=== PATIENT | male | born 1940 | race Caucasian/White ===

== ENCOUNTER 2017-02-22 01:43 | Observation (INO) | payer MEDICARE ==
[~2017-02-22] VITALS: Ht 167.6 cm; Wt 69.4 kg
[~2017-02-22 01:43] MED LIST: ASPIR 8181 MG PO; FISH OIL OMEGA1 EACH PO; ULTRACET TABLE1 EACH PO
[2017-02-22] MEDS ORDERED: SODIUM CHLORIDE 0.9% 1000ML 1,000 ML IV STA (02:08)
[2017-02-22] MEDS ORDERED: PANTOPRAZOLE 40 MG 10ML VIAL IV STA (02:08)
[2017-02-22 03:03] LABS: BASOPHILS # (AUTO) 0.1 (0.0-0.1); BASOPHILS % 0.6 % (0.0-1.0); BILIRUBIN,URINE NEGATIVE (NEGATIVE); EOSINOPHILS # (AUTO) 0.2 (0.0-0.4); EOSINOPHILS % 2.1 % (0.0-6.0); HEMATOCRIT 40.4 % (38.2-49.6); HEMOGLOBIN 14.1 g/dL (14.0-18.0); KETONES,URINE NEGATIVE (NEGATIVE); LEUKOCYTE ESTERASE ,URINE NEGATIVE (NEGATIVE); LYMPHOCYTES # (AUTO) 2.8 (1.0-3.2); LYMPHOCYTES % 29.5 % (18.0-39.1); MEAN CORPUSCULAR HEMOGLOBIN 31.9 pg (28-32); MEAN CORPUSCULAR HGB CONC 34.9 g/dL (31-35); MEAN CORPUSCULAR VOLUME 91.4 fL (81-99); MONOCYTES # (AUTO) 0.7 (0.2-0.8); MONOCYTES % 7.6 % (4.4-11.3); NEUTROPHILS # (AUTO) 5.7 (2.1-6.9); NEUTROPHILS % 59.9 % (38.7-80.0); NITRITE,URINE NEGATIVE (NEGATIVE); PLATELET COUNT 282 x10e3/uL (140-360); RED BLOOD COUNT 4.42 x10e6/uL (4.3-5.7); RED CELL DISTRIBUTION WIDTH 11.9 % (11.7-14.4); URINE UROBILINOGEN 0.2 mg/dL (0.2 - 1)
[2017-02-22 03:08] LABS: CLARITY,URINE CLEAR (CLEAR); COLOR,URINE YELLOW (YELLOW); PROTEIN,URINE DIPSTICK TRACE (NEGATIVE)
[2017-02-22 03:13] LABS: INR 0.88; PROTHROMBIN TIME 12.4 seconds (11.9-14.5)
[2017-02-22 03:14] LABS: PARTIAL THROMBOPLASTIN TIME 27.5 seconds (23.8-35.5)
[2017-02-22 03:19] LABS: BACTERIA,URINE FEW /HPF; EPITHELIAL CELLS,URINE RARE /LPF; MUCUS,URINE MODERATE (RARE); RBC,URINE 0-5 /HPF (0-5); WBC,URINE (MAN) 0-5 /HPF (0-5)
[2017-02-22 03:24] LABS: ALANINE AMINOTRANSFERASE 19 IU/L (0-55); ALBUMIN 3.5 g/dL (3.5-5.0); ALBUMIN/GLOBULIN RATIO 0.9 (0.8-2.0); ALKALINE PHOSPHATASE 51 IU/L (40-150); ANION GAP 12.9 mmol/L (8-16); BLOOD UREA NITROGEN 14 mg/dL (7-26); BUN/CREATININE RATIO 16 (6-25); CALCIUM 9.1 mg/dL (8.4-10.2); CARBON DIOXIDE 25 mmol/L (22-29); CHLORIDE 106 mmol/L (98-107); CREATINE KINASE 55 IU/L (30-200); CREATININE, SERUM 0.87 mg/dL (0.72-1.25); EST GLOMERULAR FILTRATION RATE > 60 ML/MIN (60-); GLUCOSE 117 mg/dL (74-118); LIPASE 14 U/L (8-78); MAGNESIUM 1.8 MG/DL (1.3-2.1); POTASSIUM 3.9 mmol/L (3.5-5.1); SODIUM 140 mmol/L (136-145)
[2017-02-22 03:25] LABS: CREATINE KINASE MB < 1.00 ng/mL (0-4.3); TROPONIN I < 0.05 ng/mL (0.0-0.40)
[2017-02-22] MEDS: SODIUM CHLORIDE 0.9% 1000ML 1,000 ML IV SCH ×2 (04:30→20:27)
[2017-02-22 10:36] LABS: BASOPHILS % 0.4 % (0.0-1.0); EOSINOPHILS # (AUTO) 0.1 (0.0-0.4); EOSINOPHILS % 0.9 % (0.0-6.0); HEMATOCRIT 34.9 % (38.2-49.6); HEMOGLOBIN 12.2 g/dL (14.0-18.0); LYMPHOCYTES # (AUTO) 2.2 (1.0-3.2); LYMPHOCYTES % 24.6 % (18.0-39.1); MEAN CORPUSCULAR HEMOGLOBIN 32.2 pg (28-32); MEAN CORPUSCULAR VOLUME 92.1 fL (81-99); MONOCYTES # (AUTO) 0.8 (0.2-0.8); MONOCYTES % 8.7 % (4.4-11.3); NEUTROPHILS # (AUTO) 5.9 (2.1-6.9); NEUTROPHILS % 65.1 % (38.7-80.0); PLATELET COUNT 212 x10e3/uL (140-360); RED BLOOD COUNT 3.79 x10e6/uL (4.3-5.7); RED CELL DISTRIBUTION WIDTH 11.9 % (11.7-14.4)
--- NOTE | 2017-02-22 10:52 | History and Physical ---
REASON FOR ADMISSION: Bright red blood per rectum. HISTORY OF PRESENT ILLNESS: Patient is a gentleman well known to me, who was in usual state of health until about 2-3 days prior to admission, he started having some watery diarrhea, no fever, no abdominal pain, that started to resolve, but then with bowel movement prior to the emergency room visit was pure bright red blood per rectum with no stool material, but there was no pain associated with it. REVIEW OF SYSTEMS: He denies any nausea, vomiting, weight loss, fevers, chills, rashes, chest pain, shortness of breath. PAST MEDICAL HISTORY: Hypertension. MEDICATIONS: See JUN. ALLERGIES: SEE JUN. SOCIAL: Nonsmoker, nondrinker. Lives at home with his . FAMILY HISTORY: Hypertension. PHYSICAL EXAM VITALS: 98.6, blood pressure 156/72, pulse 74, sats 99% on room air. GENERAL: He is in no apparent distress, lying in bed. NECK: Supple. CARDIOVASCULAR: Regular rate and rhythm. LUNGS: Clear to auscultation bilaterally. ABDOMEN: Good bowel sounds. Soft, nontender. Had no peritoneal signs. EXTREMITIES: No clubbing, cyanosis. NEUROLOGICAL: Nonfocal. ASSESSMENT AND PLAN 1. Bright red blood per rectum, most likely diverticulosis. He has had no other symptoms associated with it, but will admit the patient. Continue to monitor the patient. Will follow his blood counts to make sure he does not become anemic. Will consult GI for possible colonoscopy. 2. Hypertension. Will continue to monitor. He is also asymptomatic with this. Usually, he is well controlled at home without medication. Please see hospital chart for full details. Job#: [id number] CQ
[2017-02-22 12:32] VITALS: BP 163/73
[2017-02-22 13:16] VITALS: BP 163/73
[2017-02-22 16:00] VITALS: BP 127/62
[2017-02-22 17:07] LABS: BASOPHILS # (AUTO) 0.1 (0.0-0.1); BASOPHILS % 0.6 % (0.0-1.0); EOSINOPHILS # (AUTO) 0.1 (0.0-0.4); EOSINOPHILS % 1.6 % (0.0-6.0); HEMOGLOBIN 11.8 g/dL (14.0-18.0); LYMPHOCYTES # (AUTO) 2.3 (1.0-3.2); LYMPHOCYTES % 26.1 % (18.0-39.1); MEAN CORPUSCULAR HEMOGLOBIN 31.1 pg (28-32); MEAN CORPUSCULAR HGB CONC 33.7 g/dL (31-35); MEAN CORPUSCULAR VOLUME 92.1 fL (81-99); MONOCYTES # (AUTO) 0.8 (0.2-0.8); MONOCYTES % 9.7 % (4.4-11.3); NEUTROPHILS # (AUTO) 5.3 (2.1-6.9); NEUTROPHILS % 61.8 % (38.7-80.0); PLATELET COUNT 241 x10e3/uL (140-360); RED CELL DISTRIBUTION WIDTH 11.9 % (11.7-14.4)
[2017-02-22] MEDS ORDERED: PEG (High)/E-LYTE SOLN 4,000 ML BTL PO ONE (19:45)
[2017-02-22 20:02] VITALS: BP 151/86
--- NOTE | 2017-02-22 20:59 | Consultation ---
DATE OF CONSULTATION: February 22, 2017 REASON FOR CONSULT: Hematochezia versus melena. HISTORY OF PRESENT ILLNESS: A 76-year-old very pleasant white male with a past medical history of hypertension has started having diarrhea a couple of days ago. Diarrhea was self-limiting and resolved. 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 During the bowel movement, he noticed bright red blood per rectum. No stool on the toilet bowl. He has no associated dizziness, shortness of breath, palpitations, presyncope, or syncope. He has no prior history of hemorrhoids. He has never had rectal bleeding like this in the past. Denies any associated abdominal pain. No nausea or vomiting. Per the patient, blood was dark. No history of peptic ulcer disease. He has no known history of any kind of anemia. Denies any upper GI symptoms. REVIEW OF SYSTEMS: A 12-point system reviewed, and symptomatology is limited to GI system only. PAST MEDICAL HISTORY: Hypertension. PAST SURGICAL HISTORY: He has had a colonoscopy in the remote past. SOCIAL HISTORY: No smoking, alcohol or any illicit drug use. and lives with his . ALLERGIES: NO KNOWN DRUG ALLERGIES. MEDICATIONS: As per MAR. He is not any antihypertensives. PHYSICAL EXAMINATION VITAL SIGNS: Temperature 98, pulse 77, respirations 18, blood pressure 163/73 to 127/62. GENERAL: Not in any apparent distress. HEENT: Moist mucous membranes. Anicteric sclerae. NECK: No neck or axillary adenopathy. CV: S1 and S2 regular. LUNGS: Bilaterally grossly clear. ABDOMEN: Soft, nondistended and nontender. No palpable mass or hernia. Positive bowel sounds. EXTREMITIES: Warm. No leg edema. RECTAL: Deferred as the patient is going to have a colonoscopy tomorrow. LABS: WBC 8.63, hemoglobin on admission was 14.1 and subsequently dropped down to 11.8, hematocrit 35, MCV 92.1, and platelet count 241,000. Electrolytes normal. LFTs normal. Urinalysis negative. PT 12.4, INR 0.88. Stool occult hem-positive. PLAN: Medical management for GI bleeding that should include securing 2 large IV accesses, IV fluids, monitor hemoglobin. Watch for any further gross GI bleeding. Transfuse hemoglobin if hemoglobin falls below 7. Clear liquid diet. GOLYTELY tonight. Upper endoscopy as well as colonoscopy tomorrow. I thank Dr. Gayle for allowing me to participate in the care of this patient. Job#: [id number] KAITY MATUTE
[2017-02-22 22:33] LABS: BASOPHILS # (AUTO) 0.1 (0.0-0.1); BASOPHILS % 0.6 % (0.0-1.0); EOSINOPHILS # (AUTO) 0.1 (0.0-0.4); EOSINOPHILS % 1.2 % (0.0-6.0); HEMATOCRIT 38.1 % (38.2-49.6); HEMOGLOBIN 12.9 g/dL (14.0-18.0); LYMPHOCYTES # (AUTO) 1.8 (1.0-3.2); LYMPHOCYTES % 21.7 % (18.0-39.1); MEAN CORPUSCULAR HEMOGLOBIN 31.2 pg (28-32); MEAN CORPUSCULAR HGB CONC 33.9 g/dL (31-35); MEAN CORPUSCULAR VOLUME 92.3 fL (81-99); MONOCYTES # (AUTO) 0.7 (0.2-0.8); MONOCYTES % 8.7 % (4.4-11.3); NEUTROPHILS # (AUTO) 5.6 (2.1-6.9); NEUTROPHILS % 67.4 % (38.7-80.0); PLATELET COUNT 265 x10e3/uL (140-360); RED BLOOD COUNT 4.13 x10e6/uL (4.3-5.7); RED CELL DISTRIBUTION WIDTH 11.9 % (11.7-14.4)
[2017-02-23 00:17] VITALS: BP 155/74
[2017-02-23] MEDS: SODIUM CHLORIDE 0.9% 1000ML 1,000 ML IV SCH ×3 (01:08→23:43)
[2017-02-23 04:21] VITALS: BP 113/60
[2017-02-23 06:19] LABS: BASOPHILS # (AUTO) 0.1 (0.0-0.1); BASOPHILS % 0.6 % (0.0-1.0); EOSINOPHILS # (AUTO) 0.1 (0.0-0.4); EOSINOPHILS % 1.5 % (0.0-6.0); HEMATOCRIT 35.3 % (38.2-49.6); HEMOGLOBIN 11.9 g/dL (14.0-18.0); LYMPHOCYTES # (AUTO) 2.9 (1.0-3.2); LYMPHOCYTES % 30.4 % (18.0-39.1); MEAN CORPUSCULAR HEMOGLOBIN 30.8 pg (28-32); MEAN CORPUSCULAR HGB CONC 33.7 g/dL (31-35); MEAN CORPUSCULAR VOLUME 91.5 fL (81-99); MONOCYTES # (AUTO) 0.9 (0.2-0.8); MONOCYTES % 9.3 % (4.4-11.3); NEUTROPHILS # (AUTO) 5.4 (2.1-6.9); PLATELET COUNT 252 x10e3/uL (140-360); RED BLOOD COUNT 3.86 x10e6/uL (4.3-5.7)
[2017-02-23 06:55] LABS: ALANINE AMINOTRANSFERASE 17 IU/L (0-55); ALBUMIN 3.3 g/dL (3.5-5.0); ALKALINE PHOSPHATASE 47 IU/L (40-150); ANION GAP 11.9 mmol/L (8-16); BLOOD UREA NITROGEN 8 mg/dL (7-26); BUN/CREATININE RATIO 10 (6-25); CARBON DIOXIDE 28 mmol/L (22-29); CHLORIDE 107 mmol/L (98-107); EST GLOMERULAR FILTRATION RATE > 60 ML/MIN (60-); GLUCOSE 96 mg/dL (74-118); POTASSIUM 4.9 mmol/L (3.5-5.1); SODIUM 142 mmol/L (136-145)
[2017-02-23 08:00] VITALS: BP 133/68
[2017-02-23] MEDS: PANTOPRAZOLE 40 MG 10ML VIAL IV SCH (09:00)
[2017-02-23] MEDS ORDERED: SIMETHICONE 40 MG/0.6 ML BTL ONE (09:55)
[2017-02-23 12:22] VITALS: BP 137/60
[2017-02-23 12:46] LABS: BASOPHILS # (AUTO) 0.1 (0.0-0.1); BASOPHILS % 0.8 % (0.0-1.0); EOSINOPHILS # (AUTO) 0.1 (0.0-0.4); EOSINOPHILS % 1.8 % (0.0-6.0); HEMATOCRIT 34.3 % (38.2-49.6); HEMOGLOBIN 11.4 g/dL (14.0-18.0); LYMPHOCYTES % 26.1 % (18.0-39.1); MEAN CORPUSCULAR HEMOGLOBIN 30.9 pg (28-32); MEAN CORPUSCULAR HGB CONC 33.2 g/dL (31-35); MONOCYTES # (AUTO) 0.8 (0.2-0.8); MONOCYTES % 9.7 % (4.4-11.3); NEUTROPHILS # (AUTO) 4.8 (2.1-6.9); NEUTROPHILS % 61.2 % (38.7-80.0); PLATELET COUNT 238 x10e3/uL (140-360); RED BLOOD COUNT 3.69 x10e6/uL (4.3-5.7)
[2017-02-23 16:37] VITALS: BP 111/57
[2017-02-23] MEDS ORDERED: PROPOFOL IV EMULSION 10 MG/ML 20 ML VIAL ONE (16:41)
[2017-02-23] MEDS ORDERED: LIDOCAINE HCL 2% LOCAL INJ 5 ML SDV VIAL INJ ONE (16:41)
[2017-02-23] MEDS ORDERED: FENTANYL CITRATE/PF 100MCG/2 ML INJ ONE (16:57)
[2017-02-23] MEDS ORDERED: MIDAZOLAM HCL 2 MG/2 ML VIAL ONE (16:57)
[2017-02-23 18:10] LABS: BASOPHILS # (AUTO) 0.1 (0.0-0.1); BASOPHILS % 0.5 % (0.0-1.0); EOSINOPHILS # (AUTO) 0.2 (0.0-0.4); EOSINOPHILS % 1.5 % (0.0-6.0); HEMATOCRIT 35.2 % (38.2-49.6); HEMOGLOBIN 11.9 g/dL (14.0-18.0); LYMPHOCYTES # (AUTO) 1.9 (1.0-3.2); LYMPHOCYTES % 15.8 % (18.0-39.1); MEAN CORPUSCULAR HEMOGLOBIN 31.6 pg (28-32); MEAN CORPUSCULAR HGB CONC 33.8 g/dL (31-35); MEAN CORPUSCULAR VOLUME 93.6 fL (81-99); MONOCYTES # (AUTO) 0.8 (0.2-0.8); MONOCYTES % 6.3 % (4.4-11.3); NEUTROPHILS % 75.6 % (38.7-80.0); PLATELET COUNT 245 x10e3/uL (140-360); RED BLOOD COUNT 3.76 x10e6/uL (4.3-5.7); RED CELL DISTRIBUTION WIDTH 12.1 % (11.7-14.4)
[2017-02-23 20:12] VITALS: BP 106/57
[2017-02-24] VITALS: BP 102/54
[2017-02-24 00:40] LABS: BASOPHILS # (AUTO) 0.1 (0.0-0.1); BASOPHILS % 0.6 % (0.0-1.0); EOSINOPHILS # (AUTO) 0.2 (0.0-0.4); EOSINOPHILS % 2.3 % (0.0-6.0); HEMATOCRIT 30.3 % (38.2-49.6); HEMOGLOBIN 10.4 g/dL (14.0-18.0); LYMPHOCYTES % 24.6 % (18.0-39.1); MEAN CORPUSCULAR HEMOGLOBIN 31.3 pg (28-32); MEAN CORPUSCULAR HGB CONC 34.3 g/dL (31-35); MEAN CORPUSCULAR VOLUME 91.3 fL (81-99); MONOCYTES # (AUTO) 0.8 (0.2-0.8); MONOCYTES % 9.4 % (4.4-11.3); NEUTROPHILS # (AUTO) 5.2 (2.1-6.9); NEUTROPHILS % 62.9 % (38.7-80.0); PLATELET COUNT 213 x10e3/uL (140-360); RED BLOOD COUNT 3.32 x10e6/uL (4.3-5.7); RED CELL DISTRIBUTION WIDTH 12.1 % (11.7-14.4)
[2017-02-24 04:00] VITALS: BP 106/59
[2017-02-24] MEDS: SODIUM CHLORIDE 0.9% 1000ML 1,000 ML IV SCH (06:19)
[2017-02-24 06:34] LABS: BASOPHILS % 0.4 % (0.0-1.0); EOSINOPHILS # (AUTO) 0.2 (0.0-0.4); HEMATOCRIT 31.8 % (38.2-49.6); HEMOGLOBIN 10.6 g/dL (14.0-18.0); LYMPHOCYTES # (AUTO) 2.1 (1.0-3.2); LYMPHOCYTES % 28.8 % (18.0-39.1); MEAN CORPUSCULAR HGB CONC 33.3 g/dL (31-35); MONOCYTES # (AUTO) 0.7 (0.2-0.8); MONOCYTES % 10.1 % (4.4-11.3); NEUTROPHILS # (AUTO) 4.2 (2.1-6.9); NEUTROPHILS % 57.6 % (38.7-80.0); PLATELET COUNT 220 x10e3/uL (140-360); RED BLOOD COUNT 3.42 x10e6/uL (4.3-5.7)
[2017-02-24 08:00] VITALS: BP 125/64
[2017-02-24] MEDS: PANTOPRAZOLE 40 MG 10ML VIAL IV SCH (09:00)
--- NOTE | 2017-04-06 04:18 | Discharge Summary ---
DISCHARGE DIAGNOSES: 1. Gastrointestinal bleed. 2. Anemia. 3. Hypertension. HISTORY OF PRESENT ILLNESS AND HOSPITAL COURSE: See hospital chart for full details. The patient is a gentleman who presented with acute onset of GI bleed, so he was admitted for further evaluation and treatment where he did have his colonoscopy done without any further bleeding while in the hospital as well as EGD done. EGD showed normal esophagus with mild gastritis. Colonoscopy showed colonic polyps, internal hemorrhoids and diverticulosis. Patient will follow up in 1 to 2 weeks with me. Please see hospital chart for full details. BRENNON SANTOS MD Job#: [id number] GE
== END 2017-02-24 10:46 | disposition home or self-care (01) ==
LOC: ER 01:43 → ERHOLD 04:32 → EDBEDREQSVC 04:37 → IMCU 12:06
PROVIDERS: ADMIT Internal Medicine; ATTEND Internal Medicine
DX: D12.5 Benign neoplasm of sigmoid colon (principal); K62.5 Hemorrhage of anus and rectum; I10 Essential (primary) hypertension; K64.8 Other hemorrhoids; K57.30 Diverticulosis of large intestine without perforation or abscess without bleeding; K29.70 Gastritis, unspecified, without bleeding
CPT/HCPCS: 36415 ×3; 45380; 80053 ×2; 81001; 82270; 82550; 82553; 83690; 83735; 84484; 85025 ×3; 85610; 85730; 86850; 86900; 87086; 88305; 88312; 88342; 99284; G0378 ×3; J2001; J2250; J7030 ×2; 43239; 45378

== ENCOUNTER 2019-08-29 19:56 | Inpatient (IN) | payer MEDICARE, OTHER ==
[~2019-08-29] VITALS: Ht 167.6 cm; Wt 66.0 kg
[2019-08-29] MEDS ORDERED: SODIUM CHLORIDE 0.9% 1000ML 1,000 ML IV STA (21:02)
[2019-08-29 21:33] LABS: BASOPHILS % 0.2 % (0.0-1.0); EOSINOPHILS % 0.3 % (0.0-6.0); HEMOGLOBIN 8.2 g/dL (14.0-18.0); LYMPHOCYTES # (AUTO) 1.8 (1.0-3.2); LYMPHOCYTES % 14.2 % (18.0-39.1); MEAN CORPUSCULAR HEMOGLOBIN 28.5 pg (28-32); MEAN CORPUSCULAR HGB CONC 32.8 g/dL (31-35); MEAN CORPUSCULAR VOLUME 86.8 fL (81-99); MONOCYTES # (AUTO) 0.8 (0.2-0.8); MONOCYTES % 6.1 % (4.4-11.3); NEUTROPHILS # (AUTO) 10.1 (2.1-6.9); NEUTROPHILS % 78.7 % (38.7-80.0); PLATELET COUNT 296 x10e3/uL (140-360); RED BLOOD COUNT 2.88 x10e6/uL (4.3-5.7); RED CELL DISTRIBUTION WIDTH 13.7 % (11.7-14.4)
[2019-08-29 21:54] LABS: ALANINE AMINOTRANSFERASE 12 IU/L (0-55); ALBUMIN 3.1 g/dL (3.5-5.0); ALBUMIN/GLOBULIN RATIO 1.1 (0.8-2.0); ALKALINE PHOSPHATASE 43 IU/L (40-150); ANION GAP 13.5 mmol/L (8-16); BLOOD UREA NITROGEN 19 mg/dL (7-26); BUN/CREATININE RATIO 18 (6-25); CALCIUM 8.2 mg/dL (8.4-10.2); CARBON DIOXIDE 21 mmol/L (22-29); CHLORIDE 105 mmol/L (98-107); CREATINE KINASE 39 IU/L (30-200); CREATININE, SERUM 1.04 mg/dL (0.72-1.25); EST GLOMERULAR FILTRATION RATE > 60 ML/MIN (60-); GLUCOSE 158 mg/dL (74-118); LIPASE 10 U/L (8-78); POTASSIUM 4.5 mmol/L (3.5-5.1); SODIUM 135 mmol/L (136-145)
--- NOTE | 2019-08-29 23:24 | Diagnostic Imaging Report ---
EXAM: CT Abdomen and Pelvis WITH contrast INDICATION: GI bleed COMPARISON: None. TECHNIQUE: Abdomen and pelvis were scanned utilizing a multidetector helical scanner from the lung base to the pubic symphysis after administration of IV contrast. Coronal and sagittal reformations were obtained. Routine protocol was performed. Scan was performed when during portal venous phase. IV CONTRAST: 100 mL of Isovue 370 ORAL CONTRAST: Water COMPLICATIONS: None RADIATION DOSE: Total DLP: 357 mGy*cm Estimated effective dose: (DLP x 0.015 x size factor) mSv CTDIvol has been reviewed. It is below the limits set by the Radiation Protocol Committee (RPC). Dose modulation, iterative reconstruction, and/or weight based adjustment of the mA/kV was utilized to reduce the radiation dose to as low as reasonably achievable. FINDINGS: LINES and TUBES: None. LOWER THORAX: Partially visualized 6 mm noncalcified right lower lobe pulmonary nodule (image 1). HEPATOBILIARY: No focal hepatic lesions. No biliary ductal dilation. GALLBLADDER: Surgically absent. SPLEEN: No splenomegaly PANCREAS: No focal masses or ductal dilatation. ADRENALS: No adrenal nodules KIDNEYS/URETERS: Kidneys enhance symmetrically. No hydronephrosis. No cystic or solid mass lesions. Nonobstructing 5 mm right lower pole intrarenal calculus. Additional punctate nonobstructing right intrarenal calculi. GI TRACT: No abnormal distention, wall thickening, or evidence of bowel obstruction. Advanced sigmoid diverticulosis. PELVIC ORGANS/BLADDER: Unremarkable. LYMPH NODES: No lymphadenopathy. VESSELS: Extensive atherosclerotic disease. PERITONEUM / RETROPERITONEUM: No free air or fluid. BONES: Unremarkable. SOFT TISSUES: Unremarkable. IMPRESSION: No acute abdominal or pelvic abnormality. Advanced sigmoid diverticulosis. Signed by: Gen Rosenberg MD on 08/29/2019 11:21 PM
[2019-08-30] VITALS (9 sets, daily range): BP systolic 100–132; BP diastolic 52–72
--- OUTSIDE RECORDS SUMMARY | 2019-08-30 00:30 | XMS REPORT ---
Author Author [facility] Organization [facility] Address Unknown Phone Unavailable Care Team Providers Care Musical Therapist Name Role Phone MOY LETICIA Unavailable Unavailable Problems This patient has no known problems. Allergies, Adverse Reactions, Alerts This patient has no known allergies or adverse reactions. Medications This patient has no known medications. Results Test Description Test Time Test Comments Text Results Atomic Results Result Comments CT ABDOMEN/PELVIS W 2019-08-29 23:17:00 [place] [address] Patient Name: MARINA PERSON MR #: [id number] : 1940 Age/Sex: 79/M Req #: [id number] Adm Physician: Ordered by: LETICIA WINTER DO Report #: [id number] Location: ER Room/Bed: Procedure: [id number] CT/CT ABDOMEN/PELVIS W Exam Date: Exam Time: REPORT STATUS: Signed EXAM: CT Abdomen and Pelvis WITH contrast INDICATION: GI bleed COMPARISON: None. TECHNIQUE: Abdomen and pelvis were scanned utilizing a multidetector helical scanner from the lung base to the pubic symphysis after administration of IV contrast. Coronal and sagittal reformations were obtained. Routine protocol was performed. Scan was performed when during portal venous phase. IV CONTRAST: 100 mL of Isovue 370 ORAL CONTRAST: Water COMPLICATIONS: None RADIATION DOSE: Total DLP: 357 mGy*cm Estimated effective dose: (DLP x 0.015 x size factor) mSv CTDIvol has been reviewed. It is below the limits set by the Radiation Protocol Committee (RPC). Dose modulation, iterative reconstruction, and/or weight based adjustment of the mA/kV was utilized to reduce the radiation dose to as low as reasonably achievable. FINDINGS: LINES and TUBES: None. LOWER THORAX: Partially visualized 6 mm noncalcified right lower lobe pulmonary nodule (image 1). HEPATOBILIARY: No focal hepatic lesions. No biliary ductal dilation. GALLBLADDER: Surgically absent. SPLEEN: No splenomegaly PANCREAS: No focal masses or ductal dilatation. ADRENALS: No adrenal nodules KIDNEYS/URETERS: Kidneys enhance symmetrically. No hydronephrosis. No cystic or solid mass lesions. Nonobstructing 5 mm right lower pole intrarenal calculus. Additional punctate nonobstructing right intrarenal calculi. GI TRACT: No abnormal distention, wall thickening, or evidence of bowel obstruction. Advanced sigmoid diverticulosis. PELVIC ORGANS/BLADDER: Unremarkable. LYMPH NODES: No lymphadenopathy. VESSELS: Extensive atherosclerotic disease. PERITONEUM / RETROPERITONEUM: No free air or fluid. BONES: Unremarkable. SOFT TISSUES: Unremarkable. IMPRESSION: No acute abdominal or pelvic abnormality. Advanced sigmoid diverticulosis. Signed by: Gen Waters MD on 08/29/2019 11:21 PM Dictated By: GEN WATERS MD 20 Transcribed By: ESTEE on 08/29/192320 COPY TO: LETICIA WINTER DO
[2019-08-30] MEDS ORDERED: SODIUM CHLORIDE 0.9% 50ML 50 ML ONE (00:47)
[2019-08-30] MEDS ORDERED: IOPAMIDOL 370 MG/ML 200 ML INFUS..BTL INJ ONE (00:47)
[2019-08-30] MEDS: SODIUM CHLORIDE 0.9% 1000ML 1,000 ML IV SCH ×2 (03:00→07:00)
[2019-08-30 07:36] LABS: HEMOGLOBIN 5.9 g/dL (14.0-18.0)
[2019-08-30 07:37] LABS: HEMATOCRIT 17.7 % (38.2-49.6)
[2019-08-30 07:40] LABS: CREATINE KINASE 39 IU/L (30-200)
--- NOTE | 2019-08-30 07:42 | NUR ---
Notified Dr Gayle Hgb level, new orders recvd for 3 units of blood and Consult for Dr Holt, patient not in any distress this time
[2019-08-30] MEDS ORDERED: SODIUM CHLORIDE 0.9% 250ML 250 ML IV ONE (08:20)
--- NOTE | 2019-08-30 10:11 | NUR ---
First unit of blood initiated , No Adverse reaction noted in first 15 min, patient not in any distress, keep monitoring,
[2019-08-30] MEDS ORDERED: PEG (High)/E-LYTE SOLN 4,000 ML BTL PO ONE (11:15)
--- NOTE | 2019-08-30 12:24 | Consultation ---
DATE OF CONSULTATION: 08/30/2019 GI Consult Note REASON FOR CONSULT: Lower GI bleeding. HISTORY OF PRESENTING ILLNESS: A 79-year-old male, who experienced episode of bright red blood per rectum two days ago. That rectal bleeding was very trivial. He called his primary care physician, Dr. Gayle. Dr. Gayle saw him in the office, did his rectal exam and found a little bit of bright red blood around his anus. The patient was sent home with a local treatment for hemorrhoids. However, next day, the patient again has had episode of rectal bleeding, this time he also felt winded. He did not pass out. He called Dr. Gayle. Dr. Gayle advised him to come to the emergency room. The patient has had episode of rectal bleeding like this in the past. He was seen by me when he was in the hospital in 2017. He has had upper endoscopy and colonoscopy. Colonoscopy revealed the source of rectal bleeding at that time was sigmoid diverticulosis. The bleeding spontaneously stopped. Therefore, did not require any intervention. For last three years, he has not had any episode of bleeding till he presented in the emergency room this time. The patient followed with Dr. Brandt, my partner in GI office. He does not remember when he saw him last. The patient denies any associated abdominal pain. REVIEW OF SYSTEMS: Twelve point system reviewed, symptomatology is limited to GI system. PAST MEDICAL HISTORY: Hypertension. PAST SURGICAL HISTORY: Colonoscopy in 2017. No abdominal surgery. FAMILY HISTORY: Noncontributory. SOCIAL HISTORY: No smoking, alcohol, or any illicit drug use. ALLERGIES: NO KNOWN DRUG ALLERGIES HOME MEDICATIONS: 1. Aspirin. 2. Gamaliel-3 fatty acid. PHYSICAL EXAMINATION: VITAL SIGNS: Temperature 98, pulse 87, respirations 20, blood pressure 100/55, oxygen saturation 92% on room air. GENERAL: Not in any apparent distress. HEENT: Oral mucosa is moist. Anicteric sclerae. CVS: S1, S2, regular. LUNGS: Bilaterally grossly clear. ABDOMEN: Soft, nondistended, nontender. No palpable mass or hernia. Positive bowel sounds. EXTREMITIES: Warm. No leg edema. LABORATORY DATA: Hemoglobin dropped down from 8.2 to 5.9, WBC 12.88, hematocrit 25, and platelet count 296. Sodium 135, potassium 4.5, chloride 105, bicarb 21, BUN 19, creatinine 1.04, glucose 158. Liver enzymes normal. PT 12.4, INR 0.88. CT of the abdomen and pelvis with contrast showed no acute abdominal pathology except the patient has quite advanced sigmoid diverticulosis. IMPRESSION: Hemodynamically stable lower gastrointestinal bleeding from sigmoid diverticulosis. The bleeding seems to have ceased as the patient has not had any episode of hematochezia since yesterday. He is currently getting blood transfusion to keep the hemoglobin above 7. PLAN: Clear liquid diet, GoLYTELY for bowel prep tonight. Colonoscopy tomorrow to check for any high-risk lesion, which can potentially rebleed. Further recommendation based upon colonoscopy finding. I thank Dr. Gayle for allowing me to participate in the care of this patient. Nima Freeman MD SA/SKYE /[phone]
[2019-08-30 14:21] LABS: HEMATOCRIT 21.4 % (38.2-49.6); HEMOGLOBIN 7.1 g/dL (14.0-18.0)
[2019-08-30 14:41] LABS: CREATINE KINASE 85 IU/L (30-200)
[2019-08-30] MEDS ORDERED: SODIUM CHLORIDE 0.9% 250ML 250 ML ONE ×2 (14:49→20:26)
--- NOTE | 2019-08-30 15:35 | Consultation ---
DATE OF CONSULTATION: 08/30/2019 HISTORY OF PRESENT ILLNESS: The patient is a 79-year-old male, who presents with complaints of rectal bleeding, says it has been bright red blood, he had similar symptoms about 2-1/2 years ago. Had a colonoscopy done, which revealed diverticulosis at that time. CT of the abdomen and pelvis done this admission, also reveals diverticulosis with no other abnormalities. The patient has been hemodynamically stable. His hemoglobin, however, dropped from 8.2 to 5.9, he is currently being transfused. PAST MEDICAL HISTORY: Significant for hypertension. He has had previous cholecystectomy. Colonoscopy was also done in 2017. FAMILY HISTORY: Noncontributory. SOCIAL HISTORY: The patient does not smoke cigarettes or drink alcohol. REVIEW OF SYSTEMS: As stated above. He has had some weakness and lightheadedness. PHYSICAL EXAMINATION: GENERAL: The patient is awake and alert, in no distress. VITAL SIGNS: Normal at this time. HEENT: Sclerae is not icteric. NECK: Supple, no masses. LUNGS: Equal breath sounds, are clear bilaterally. CARDIAC: Regular rate and rhythm with no murmur. ABDOMEN: Soft. There is no tenderness. No mass. No organomegaly. RECTAL: Had no mass. EXTREMITIES: Have no edema. NEUROLOGIC: Grossly intact. LABORATORY TESTS: White blood cell count is 12.8, most recent hemoglobin 5.9, hematocrit 17. Chemistries; essentially normal. ASSESSMENT: A 79-year-old male with lower gastrointestinal bleeding. This likely is due to diverticulosis. This is recurrent episodes of bleeding per last being about 2-1/2 years ago. At this point, recommend keep monitoring the patient closely, transfusing as necessary. He is to be seen by Gastroenterology, may require colonoscopy. There are no findings at this time, would warrant immediate surgical intervention. Thank you for asking me to see Mr. Mathias. MD ELIZABETH Grant/SKYE /[id number]
--- NOTE | 2019-08-30 15:37 | NUR ---
Notified Dr Freeman (sales operations assistant for [employer]) that Covid test result will take around 24-48 hrs, new order recvd to cancel order for procedure and to Stop Laxatives
[2019-08-30] MEDS ORDERED: BISACODYL 5 MG TAB EC PO ONE (16:00)
[2019-08-30 20:12] LABS: HEMATOCRIT 23.5 % (38.2-49.6); HEMOGLOBIN 8.1 g/dL (14.0-18.0)
[2019-08-31] VITALS (8 sets, daily range): BP systolic 109–132; BP diastolic 54–69
--- NOTE | 2019-08-31 06:36 | NUR ---
Pt resting in bed, easily aroused. Assisted up to bathroom. Pt deny discomfort, no s/sx of distress. IVF infusing no diff. Bed alarm in place, bed in low position and personal items in reach
[2019-08-31 06:47] LABS: HEMATOCRIT 27.3 % (38.2-49.6); HEMOGLOBIN 9.3 g/dL (14.0-18.0)
--- NOTE | 2019-08-31 06:50 | NUR ---
Received bedside shift report from off going nurse. Patient is in stable condition. No s/s of distress noted. Call light within reach. Bed in the lowest position. Bed alarm on.
[2019-08-31] MEDS: SODIUM CHLORIDE 0.9% 1000ML 1,000 ML IV SCH ×3 (12:05→20:52)
[2019-08-31 12:29] LABS: HEMATOCRIT 29.1 % (38.2-49.6); HEMOGLOBIN 9.8 g/dL (14.0-18.0)
[2019-08-31 18:18] LABS: HEMATOCRIT 27.5 % (38.2-49.6); HEMOGLOBIN 9.5 g/dL (14.0-18.0)
--- NOTE | 2019-08-31 18:57 | NUR ---
Bedside shift report given to oncoming nurse. Patient is resting in bed. No acute distress noted. Call light within reach. Bed in the lowest position.
--- NOTE | 2019-08-31 19:02 | NUR ---
Received pt in bed awake a/o x3. Denies pain at this time, bed in low position, call light in reach, personal item in reach no s/sx of acute distress. Will cont to mon.
[2019-09-01] VITALS (9 sets, daily range): BP systolic 110–155; BP diastolic 60–88
[2019-09-01] MEDS: SODIUM CHLORIDE 0.9% 1000ML 1,000 ML IV SCH ×2 (04:49→13:12)
[2019-09-01 06:18] LABS: HEMOGLOBIN 8.6 g/dL (14.0-18.0)
--- NOTE | 2019-09-01 07:00 | NUR ---
RECEIVED BEDSIDE SHIFT REPORT FROM OFF GOING NURSE. PATIENT IS RESTING IN BED. NO ACUTE DISTRESS NOTED AT THIS TIME. IV FLUIDS GOING. CALL LIGHT WITHIN REACH. BED IN THE LOWEST POSITION.
[2019-09-01 12:23] LABS: HEMATOCRIT 27.2 % (38.2-49.6); HEMOGLOBIN 9.1 g/dL (14.0-18.0)
[2019-09-01] MEDS ORDERED: PEG (High)/E-LYTE SOLN 4,000 ML BTL PO NR (16:00)
[2019-09-01 18:23] LABS: HEMATOCRIT 31.2 % (38.2-49.6); HEMOGLOBIN 10.3 g/dL (14.0-18.0)
--- NOTE | 2019-09-01 19:03 | NUR ---
Bedside shift report given to oncoming nurse. Patient is resting in bed. No acute distress noted at this time. Call light within reach. Bed in the lowest position.
[2019-09-02] VITALS (9 sets, daily range): BP systolic 119–140; BP diastolic 57–85
[2019-09-02] MEDS: SODIUM CHLORIDE 0.9% 1000ML 1,000 ML IV SCH (00:25)
--- NOTE | 2019-09-02 04:40 | NUR ---
MD SANTOS ROUNDING, VERBAL ORDER GIVEN TO STOP AND FURTHER H&H LABS, NONE SEEN IN ORDERS FOR TODAY OR FUTURE, WILL MAKE NEXT SHIFT AWARE
--- NOTE | 2019-09-02 07:38 | NUR ---
BSSR GIVEN TO ADRIA RN, PATIENT SEEN IN NO DISTRESS AT SHIFT CHANGE, SKIN WARM DRY, NO C/O PAIN, AOX4, CALL LIGHT WITHIN REACH, NPO AFTER MIDNIGHT FOR PROCEDURE THIS AM, CONSENT IN CHART
--- NOTE | 2019-09-02 09:25 | NUR ---
ASSESSMENT: Spiritual concern Pt worried about his and upcoming procedure. Pt states his "procedure was delayed." Intervention: Provided hospitality and empathic listening. Facilitated identification of emotions. Provided prayer. Outcome: Pt expressed appreciation for visit. Sr. Manager Marketing provided information on how to reach health spa manager, if needed. LADY SINGH Sr. Manager Marketing Spiritual Care Department O: [phone]
--- NOTE | 2019-09-02 11:30 | NUR ---
Pt being transferred to OR at this time for colonoscopy. Pt is aox4 and able to verbalize needs. Pt denies any pain at this time.
--- NOTE | 2019-09-02 12:36 | NUR ---
Pt returned from colonoscopy at this time. Pt is aox3 and able to verbalize needs. Denies any pain at this time. 0 s/s of acute distress noted. Pt can restart low sodium diet. He has been cleared by GI to be discharged.
--- NOTE | 2019-09-02 14:14 | NUR ---
Pt discharged home at this time. Pt is aox3 and able to verbalize needs. Pt was able to tolerate meal after colonoscopy. Pt verbalized understanding of all discharge instructions and follow up appointments. Denies any pain at time of discharge.
[2019-09-02] MEDS ORDERED: PROPOFOL IV EMULSION 10 MG/ML 20 ML VIAL ONE (18:43)
[2019-09-02] MEDS ORDERED: LIDOCAINE HCL 2% LOCAL INJ 5 ML SDV VIAL INJ ONE (18:43)
--- NOTE | 2019-09-03 08:05 | Discharge Summary ---
DISCHARGE DIAGNOSES: 1. Gastrointestinal bleed. 2. Anemia, status post transfusion. 3. Diverticulosis. HISTORY OF PRESENT ILLNESS AND HOSPITAL COURSE: The patient is a gentleman, who presented with severe bright red blood per rectum without pain to the point his hemoglobin got down into the mid 5 range without symptoms other than fatigue. He was given transfusion of 3 units of blood with significant improvement of his hemoglobin up to around the 10 range. He did have a colonoscopy done that showed severe diverticulosis, but no active signs of bleeding, so he had no further signs of bleeding for 3 days prior to discharge. He is able to be discharged home in good condition. Follow up with me in 1 to 2 weeks. Return back to the emergency room if he starts slightly more severe bleeding. Please see hospital chart for full details. MD JUSTIN Barkley/SKYE /[id number]
== END 2019-09-02 14:25 | disposition home or self-care (01) | DRG 378 ==
LOC: ER 19:56 → ERHOLD 23:02 → MED/SURG3 08-30 01:33
PROVIDERS: ADMIT Internal Medicine; ATTEND Internal Medicine
PROC: 0DBB8ZX Excision of Ileum, Via Natural or Artificial Opening Endoscopic, Diagnostic (ICD-10-PCS; principal; 2019-09-02 11:28)
DX: K57.31 Diverticulosis of large intestine without perforation or abscess with bleeding (principal); D62 Acute posthemorrhagic anemia; I10 Essential (primary) hypertension; Z90.49 Acquired absence of other specified parts of digestive tract
CPT/HCPCS: 36415; 45378; 74177; 80053; 82550; 82553; 83690; 84484; 85014; 85018; 85025; 86850; 86900; 86920; 87635; 88305; 93005; 96361; 99284; J2001; J7030; J7050; P9016; Q9967

== ENCOUNTER 2019-10-18 10:14 | Emergency (ER) | payer MEDICARE, OTHER ==
[~2019-10-18] VITALS: Ht 167.6 cm; Wt 65.8 kg
--- NOTE | 2019-10-18 10:57 | Emergency Department Note ---
History of Present Illnes History of Present Illness Chief Complaint: General Medicine Complaints History of Present Illness This is a 79 year old male arrives to the ED at the recommendation of his PCP after his tested positive for Coban 19. Patient denies any complaints at this time. . Chief Complaint Comment PATIENT IN FROM DR SWANSON OFFICE FOR COVID TESTING; STATES THAT HIS CAME IN AND TESTED POSITIVE. PATIENT DENIES ANY COMPLAINTS AT THIS TIME, DENIES SHORTNESS OF BREATH, COUGH, PAIN, FEVER. PATIENT ALERT AND ORIENTED, RESP EVEN AND NONLABORED, APPEARS IN NO DISTRESS, AMBULATORY WITHOUT ASSISTANCE Historian: Patient Arrival Mode: Car Onset (how long ago): day(s) Severity: unable to specify Onset quality: unable to specify Progression: unable to specify Chronicity: new Context: Reports recent illness, Reports other (CoVID 19 exposure) Relieving factors: other Exacerbating factors: other Treatments prior to arrival: none Past Medical/Family History Physician Review I have reviewed the patient's past medical and family history. Any updates have been documented here. Past Medical History Recent Fever: No Clinical Suspicion of Infectio: No New/Unexplained Change in Ment: No Past Medical History: Anemia Other Medical History: GI BLEED Past Surgical History: Cholecysctectomy, Appendectomy Social History Smoking Cessation: Never Smoker Counseling Performed: No Alcohol Use: None Any Illegal Drug Use: No TB Exposure/Symptoms: No Physically hurt or threatened: No Family History Family history of heart diseas: No Other Last Tetanus: UNKNOWN Any Pre-Existing Lines (PICC,: No Is patient up to date on immun: Yes Last Flu: UTD Last Pneumovax: UTD Review of Systems Review of Systems Constitutional: Reports no symptoms EENTM: Reports no symptoms Cardiovascular: Reports no symptoms Respiratory: Reports no symptoms Gastrointestinal: Reports no symptoms Genitourinary: Reports no symptoms Musculoskeletal: Reports no symptoms Integumentary: Reports no symptoms Neurological: Reports no symptoms Psychological: Reports no symptoms Endocrine: Reports no symptoms Hematological/Lymphatic: Reports no symptoms Physical Exam Related Data Allergies: Coded Allergies: No Known Allergies (Unverified , 05/02/16) Triage Vital Signs Vital Signs Date Time Temp Pulse Resp B/P (MAP) Pulse Ox O2 Delivery O2 Flow Rate FiO2 10/18/19 10:30 98.1 77 18 143/94 98 Physical Exam CONSTITUTIONAL Constitutional: Present well-developed, Present well-nourished HENT HENT: Present normocephalic, Present atraumatic, Present oropharynx octavia r/moist, Present nose normal HENT L/R: Present left ext ear normal, Present right ext ear normal EYES Eyes: Reports PERRL, Reports conjunctivae normal NECK Neck: Present ROM normal PULMONARY Pulmonary: Present effort normal, Present breath sounds normal CARDIOVASCULAR Cardiovascular: Present regular rhythm, Present heart sounds normal, Present capillary refill normal, Present normal rate GASTROINTESTINAL Abdominal: Present soft, Present nontender, Present bowel sounds normal GENITOURINARY Genitourinary: Present exam deferred SKIN Skin: Present warm, Present dry MUSCULOSKELETAL Musculoskeletal: Present ROM normal NEUROLOGICAL Neurological: Present alert, Present oriented x 3, Present no gross motor or sensory deficits PSYCHOLOGICAL Psychological: Present mood/affect normal, Present judgement normal Assessment & Plan Medical Decision Making MDM 79-year-old well-appearing male arrives to the ED requesting a Covid 19 swab after his life is positive. Patient has no complaints. Patient's oxygen saturation remained above 98% in the ED. Patient received a chest x-ray to insure no occult pneumonia which was normal. Patient stable for DC with PCP fol low-up. Assessment & Plan Final Impression: (1) COVID-19 Last Vital Signs Date Time Temp Pulse Resp B/P (MAP) Pulse Ox O2 Delivery O2 Flow Rate FiO2 10/18/19 10:30 98.1 77 18 143/94 98 Home Meds Reported Medications Aspirin (ASPIR 81) 81 Mg Tablet.dr 81 MG PO DAILY 05/03/16 [place]-3/Dha/Epa/Fish Oil (FISH OIL OMEGA-3 SOFTGEL) 1 Each Capsule., PO DAILY 05/03/16 MO SPEARS DO Oct 18, 2019 10:57
--- NOTE | 2019-10-18 12:56 | Diagnostic Imaging Report ---
TECHNIQUE: Frontal view of the chest. INDICATION: 79-year-old man with shortness of breath. COMPARISON: None. FINDINGS: LINES/TUBES: None. LUNGS: The lungs are well inflated and clear. PLEURA: No pneumothorax or significant pleural effusion. HEART AND MEDIASTINUM: The cardiomediastinal silhouette is within normal limits. SOFT TISSUES AND BONES: Unremarkable. IMPRESSION: No acute cardiopulmonary abnormalities. Signed by: Deja Bull MD on 10/18/2019 12:53 PM
[2019-10-18] MEDS ORDERED: AZITHROMYCIN250 MG PO (13:11)
== END 2019-10-18 14:06 | disposition home or self-care (01) ==
LOC: ER 10:14
DX: U07.1 COVID-19 (principal); Z86.2 Personal history of diseases of the blood and blood-forming organs and certain disorders involving the immune mechanism
CPT/HCPCS: 71045; 87635; 99283